=== PATIENT | female | born 1960 | race Caucasian/White ===

== ENCOUNTER 2016-10-08 13:56 | Emergency (ER) | payer OTHER, MEDICARE ==
[~2016-10-08] VITALS: Ht 160 cm; Wt 72.6 kg
[~2016-10-08 13:56] MED LIST: AMLODIPINE BESY10 M1 PO; AMLODIPINE10 MG PO; AMOXICILLIN500 MG PO; BACTRIM DS 8001 TAB PO; BENADRYL25 MG PO; CARAFATE1 GM/10 ML PO; CHANTIX1 EACH PO; CYCLOBENZAPRINE10 M1 PO; DOXYCYCLINE HY100 M2 PO; FOLIC ACID 1 MG PO; HYDROCODON-ACE1 EAC2 PO; HYDROXYZINE HCL50 M1 PO; KEPPRA 500MG T500 MG PO; LEVETIRACETAM500 M2 PO; LIDOCAINE HCL PO; LISINOPRIL10 M1 PO; LISINOPRIL10 MG PO; LORAZEPAM2 MG PO; MAGNESIUM OXID400 MG PO; MEDROL4 M2 PO; METFORMIN HCL500 M3 PO; METFORMIN HCL500 MG PO; NAPROXEN500 M2 PO; NATURE'S BLEND100 M3 PO; NEXIUM 40MG40 MG PO; OMEPRAZOLE20 M2 PO; PAROXETINE HYDR20 MG PO; PERMETHRIN60 GM TOP; PRAVASTATIN SOD10 M2 PO; PRILOSEC 20MG C20 MG PO; PRILOSEC40 MG PO; TRIAMCINOLONE A80 GM TOP; Theragran Vitamins PO; VITAMIN B-1100 MG PO; VITAMIN B-121000 MC3 PO; VITAMIN B1100 MG PO; ZOLOFT25 M1 PO
[2016-10-08] MEDS ORDERED: GOLYTELY PACKE1 EACH PO (16:03)
[2016-10-08] MEDS ORDERED: DULCOLAX10 M1 RC (16:03)
--- NOTE | 2016-10-08 16:03 | ED GI/GU/ABDOMINAL COMPLAINT ---
History of Present Illness General Chief Complaint: Abdominal Pain/Flank Pain Stated Complaint: CONSTIPATION Source: patient Exam Limitations: no limitations Vital Signs & Intake/Output Vital Signs & Intake/Output Vital Signs Date Time Temp Pulse Resp B/P Pulse O2 O2 Flow FiO2 Ox Delivery Rate 10/08 1606 98.0 72 18 161/81 98 10/08 1408 97.6 74 16 132/83 95 Room Air Allergies Coded Allergies: NO KNOWN ALLERGIES (05/27/16) Reconcile Medications Amlodipine Besylate 10 MG TABLET 1 TAB PO DAILY BP (Reported) Bisacodyl (Dulcolax) 10 MG SUPP.RECT 1 SUP RC DAILY CONSTIPATION Cyanocobalamin (Vitamin B-12) (Unknown Strength) TABLET (Unknown Dose) PO DAILY SUPPLEMENT (Reported) Cyclobenzaprine HCl 10 MG TABLET 1 TAB PO QPM PRN SPASM Diphenhydramine HCl (Benadryl) 25 MG CAPSULE 1 CAP PO BID PRN ITCHING Doxycycline Hyclate 100 MG CAPSULE 1 CAP PO BID DERMATITIS Levetiracetam 500 MG TABLET 1 TAB PO BID SEIZURES (Reported) Lisinopril 10 MG TABLET 1 TAB PO DAILY BP (Reported) Metformin HCl 500 MG TABLET 1 TAB PO BID DIABETES (Reported) Methylprednisolone. (Medrol) 4 MG TAB.DS.PK 1 DP PO AD INFLAMMATION 6 on day 1 then reduce by one tablet daily until gone Omeprazole 20 MG CAPSULE.DR 1 CAP PO BID GI (Reported) Peg 3350/Na Sulf,Bicarb,Cl/KCl (Golytely Packet) 227.1-21.5 POWD.PACK 1 PAC PO ONCE PRN CONSTIPATION Permethrin 5 % CREAM..G. 1 HAM TOP ONCE DERMATITIS massage into skin from head to soles of feet one time, leave on for 8-14 hours then remove by thorough washing Pravastatin Sodium 10 MG TABLET 1 TAB PO DAILY CHOLESTEROL (Reported) Sertraline HCl (Zoloft) 25 MG TABLET 1 TAB PO DAILY MENTAL HEALTH (Reported) Thiamine HCl (Vitamin B-1) (Unknown Strength) TABLET (Unknown Dose) PO DAILY SUPPLEMENT (Reported) Triage Note: PT STATES SHE IS CONSTIPATED TRIED ALL KINDS OF THINGS AT HOME BUT UNABLE TO MOVE HER BOWELS. PT STATES SHE CAN FEEL IT IN HER RECTUM. PT STATES SHE IS HERE FOR A RECOMENDATION TO WHAT TO TAKE TO PREVENT THIS. Triage Nurses Notes Reviewed? yes ? n Is pt currently ? No HPI: 55-year-old female here with complaints of constipation. She has been having problems with constipation for several months but is getting worse over the last few weeks. She is able to pass only small amounts of very hard stool. She has pain and pressure in her rectal area. She has frontal lower abdominal cramping pain and pressure sensation with bloating. She has a normal appetite, no vomiting. No previous abdominal surgeries. She has tried chocolate over-the- counter lactate once without relief. (LORETTA CHAUHAN) Past History Travel History Traveled to [place] past 21 day No Medical History Any Pertinent Medical History? see below for history Neurological: seizure, subdural hematoma EENT: PREVIOUS LEFT ORBITAL TRAUMA Cardiovascular: hypertension Respiratory: NONE Gastrointestinal: odynophagia/vomiting Hepatic: NONE Renal: NONE Musculoskeletal: osteoarthritis Psychiatric: alcohol dependence, depression, past hx cocaine. 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 10/22/2011: Tetanus vaccine. History of MRSA: No History of VRE: No History of CDIFF: No Tetanus Vaccine: 10/22/11 Surgical History Surgical History: R SHOULDER SURG 1994-rotator cuff (retorn) left oophrectomy 2005 "benign". Psychosocial History Who do you live with Patient/Self Services at Home None What is your primary language Guinean Tobacco Use: Current Daily Use Daily Tobacco Use Amount/Type: => 5 Cigarettes daily ETOH Use: occasional use Illicit Drug Use: denies illicit drug use Family History Family History, If Any: MOTHER, , Age 65; Cause: Throat cancer. FATHER, , Age 83; Cause: PNA (pneumonia). Hx Contributory? No (LORETTA CHAUHAN) Review of Systems Review of Systems Constitutional: Reports: see HPI. EENTM: Reports: no symptoms. Respiratory: Reports: no symptoms. Cardiovascular: Reports: no symptoms. GI: Reports: see HPI. Genitourinary: Reports: no symptoms. Musculoskeletal: Reports: no symptoms. Skin: Reports: no symptoms. Neurological/Psychological: Reports: no symptoms. Hematologic/Endocrine: Reports: no symptoms. Immunologic/Allergic: Reports: no symptoms. All Other Systems: Reviewed and Negative (LORETTA CHAUHAN) Physical Exam Physical Exam Respiratory: normal breath sounds, chest non-tender, no respiratory distress Cardiovascular: regular rate/rhythm Gastrointestinal: normal bowel sounds, soft, non-tender, mild diffuse distention , normoactive bowel sounds. Nontender. No organomegaly Core Measures ACS in differential dx? No Severe Sepsis Present: No Septic Shock Present: No (LORETTA CHAUHAN) Progress Differential Diagnosis: AAA, AMI, appendicitis, biliary colic, bowel obstruction , colon cancer, cholecystitis, diverticulitis, ectopic , endometritis, esophageal varices, gastritis, hepatitis, hernia, hemorrhoids, ischemic bowel, inflamm bowel dis, intrauterine , kidney stone, Shereen-Priscilla tear, ovarian cyst, ovarian torsion, pancreatitis, PID/cervicitis, peptic ulcer, PUD/ GERD, perforated viscous, SBO, threatened AB, UTI/pyelo Plan of Care: Recommend stool softeners, MiraLAX, suppository medication for possible rectal impaction. Patient has had colonoscopies in the past that were normal, she is taking GoLYTELY in the past with excellent results. I recommend that she takes about a third to one half of a bottle of GoLYTELY tonight to see if that helps move her bowels and we discussed being more regular and preventive measures that she can take such as increased fiber increase water increased activity Initial ED EKG: none (LORETTA CHAUHAN) Departure Departure Disposition: HOME OR SELF CARE Condition: Stable Clinical Impression Primary Impression: Constipation Qualifiers: Constipation type: unspecified constipation type Qualified Code: K59.00 - Constipation, unspecified Referrals: SANDY AGUILERA APRN (PCP/Family) Additional Instructions: Use the suppository medication for your constipation Drink one third to one half of the GoLYTELY tonight and the rest tomorrow if YOU DO not have a significant bowel movement. Start taking Metamucil or MiraLAX [id number] every day or every other day to avoid constipation Departure Forms: Customer Survey General Discharge Information Prescriptions: Current Visit Scripts Peg 3350/Na Sulf,Bicarb,Cl/KCl (Golytely Packet) 1 PAC PO ONCE PRN CONSTIPATION #1 PAC Bisacodyl (Dulcolax) 1 SUP RC DAILY #10 SUP (LORETTA CHAUHAN) PA/MIXING PICKER TENDER Co-Sign Statement Statement: ED Attending supervision documentation- [] I saw and evaluated the patient. I have also reviewed all the pertinent lab results and diagnostic results. I agree with the findings and the plan of care as documented in the PA's/MIXING PICKER TENDER's documentation. x I have reviewed the ED Record and agree with the PA's/MIXING PICKER TENDER's documentation. [] Additions or exceptions (if any) to the PAs/MIXING PICKER TENDER's note and plan are summarized below: [] (RAUL RAMOS,JAMISON)
[2016-10-08 16:06] VITALS: BP 161/81
== END 2016-10-08 16:09 ==
LOC: ERH 13:56
DX: K59.00 Constipation, unspecified (principal)

== ENCOUNTER 2016-11-17 18:08 | Emergency (ER) | payer OTHER, MEDICARE ==
[~2016-11-17] VITALS: Ht 160 cm; Wt 70.3 kg
[~2016-11-17 18:08] MED LIST changes: +DULCOLAX10 M1 RC; +GOLYTELY PACKE1 EACH PO
--- NOTE | 2016-11-17 19:12 | ED GI/GU/ABDOMINAL COMPLAINT ---
History of Present Illness General Chief Complaint: Abdominal Pain/Flank Pain Stated Complaint: DRINKING TOO MUCH, ABD PAIN, VOMITING Source: patient Exam Limitations: no limitations Vital Signs & Intake/Output Vital Signs & Intake/Output Vital Signs Date Time Temp Pulse Resp B/P Pulse O2 O2 Flow FiO2 Ox Delivery Rate 11/17 2348 98.9 89 18 139/89 96 Room Air 11/17 2209 83 16 113/68 96 Room Air 11/17 1819 97.8 118 16 123/91 98 Room Air ED Intake and Output 11/18 0000 11/17 1200 Intake Total 2000 Output Total Balance 1999 Intake, IV 2000 Patient 155 lb Weight Allergies Coded Allergies: NO KNOWN ALLERGIES (05/27/16) Reconcile Medications Amlodipine Besylate 10 MG TABLET 1 TAB PO DAILY BP (Reported) [COLON CLEANSE] 1 TBSP PO AD CONSTIPATION (Reported) Cyanocobalamin (Vitamin B-12) (Unknown Strength) TABLET (Unknown Dose) PO DAILY SUPPLEMENT (Reported) Ibuprofen 800 MG TABLET 1 TAB PO TID PAIN/INFLAMMATION (Reported) Levetiracetam 500 MG TABLET 1 TAB PO BID SEIZURES (Reported) Lisinopril 10 MG TABLET 1 TAB PO DAILY BP (Reported) Metformin HCl 500 MG TABLET 1 TAB PO BID DIABETES (Reported) Omeprazole 20 MG CAPSULE.DR 1 CAP PO BID GI (Reported) Omeprazole Magnesium (Prilosec Otc) 20 MG TABLET.DR 1 TAB PO DAILY gastritis Ondansetron (Zofran Odt) 4 MG TAB.RAPDIS 1 TAB SL TID PRN nausea Pravastatin Sodium 10 MG TABLET 1 TAB PO DAILY CHOLESTEROL (Reported) Sertraline HCl 50 MG TABLET 1 TAB PO DAILY MENTAL HEALTH (Reported) Thiamine HCl (Vitamin B-1) (Unknown Strength) TABLET (Unknown Dose) PO DAILY SUPPLEMENT (Reported) Triage Note: PT STATES SHE HAS BEEN DRINKING AND SHE IS HAVING ABD PAIN AND VOMITING. Triage Nurses Notes Reviewed? yes ? n Is pt currently ? No Onset: Gradual Duration: day(s):, waxing and waning Timing: recent history Quality/Severity: burning Location: epigastric Radiation: no radiation Activities at Onset: none Modifying Factors: Worsens With: vomiting, other (drinking etoh). Associated Symptoms: nausea/vomiting HPI: 55 yo woman h/o interittent alcohol abuse presents with mid epigastric discomfort, nausea, and vomiting for the past 1.5 days after drinking alcohol. "I bought a few pints, drank them, and then couldn 't stop vomiting." She notes that she does not chronically drink alcohol and has no tremors or withdrawal symptoms. She has no fever, chills chest pain, dysuria, dyspnea. She is otherwise well. Past History Travel History Traveled to [place] past 21 day No Medical History Any Pertinent Medical History? see below for history Neurological: seizure, subdural hematoma EENT: PREVIOUS LEFT ORBITAL TRAUMA Cardiovascular: hypertension Respiratory: NONE Gastrointestinal: odynophagia/vomiting Hepatic: NONE Renal: NONE Musculoskeletal: osteoarthritis Psychiatric: alcohol dependence, depression, past hx cocaine. 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 10/22/2011: Tetanus vaccine. History of MRSA: No History of VRE: No History of CDIFF: No Tetanus Vaccine: 10/22/11 Surgical History Surgical History: R SHOULDER SURG 1994-rotator cuff (retorn) left oophrectomy 2005 "benign". Psychosocial History Who do you live with Patient/Self Services at Home None What is your primary language Faroese Tobacco Use: Current Daily Use Daily Tobacco Use Amount/Type: => 5 Cigarettes daily ETOH Use: occasional use Illicit Drug Use: denies illicit drug use Family History Family History, If Any: MOTHER, , Age 65; Cause: Throat cancer. FATHER, , Age 83; Cause: PNA (pneumonia). Hx Contributory? No Review of Systems Review of Systems Constitutional: Reports: no symptoms. EENTM: Reports: no symptoms. Respiratory: Reports: no symptoms. Cardiovascular: Reports: no symptoms. GI: Reports: no symptoms. Genitourinary: Reports: no symptoms. Musculoskeletal: Reports: no symptoms. Skin: Reports: no symptoms. Neurological/Psychological: Reports: no symptoms. Hematologic/Endocrine: Reports: no symptoms. Immunologic/Allergic: Reports: no symptoms. All Other Systems: Reviewed and Negative Physical Exam Physical Exam General Appearance: well developed/nourished Head: atraumatic, normal appearance Eyes: Bilateral: normal appearance. Ears, Nose, Throat, Mouth: hearing grossly normal Neck: normal inspection, supple, full range of motion Respiratory: normal breath sounds, chest non-tender, no respiratory distress, quiet respiration, lungs clear Cardiovascular: regular rate/rhythm Gastrointestinal: normal bowel sounds, soft, no organomegaly, mild mid epigastric tenderness to palpation. no rebound. no guarding Back: normal inspection, normal range of motion Extremities: normal range of motion Neurologic/Psych: no motor/sensory deficits, awake, alert, oriented x 3 Skin: intact, normal color, warm/dry Core Measures ACS in differential dx? No Severe Sepsis Present: No Septic Shock Present: No Progress Differential Diagnosis: etoh gastritis, hepatitis, pancreatitis vs other. Plan of Care: Orders Procedure Date/time Status Add-on Test (ER Only) 11/18 1919 Active EKG 11/18 1919 Active TROPONIN LEVEL 11/17 1829 Complete PROTHROMBIN TIME 11/17 1829 Complete LIPASE 11/17 1829 Complete ETHANOL 11/17 1829 Complete COMPREHENSIVE METABOLIC PANEL 11/17 1829 Complete CBC WITHOUT DIFFERENTIAL 11/17 1829 Complete AMYLASE 11/17 1829 Complete Laboratory Tests 11/17/16 1900: Anion Gap 16, Estimated GFR > 60, BUN/Creatinine Ratio 20.0, Glucose 150 H, Calcium 10.3 H, Total Bilirubin 1.2, AST 70 H, ALT 84 H, Alkaline Phosphatase 83, Troponin I < 0.01, Total Protein 7.2, Albumin 4.8, Globulin 2.4, Albumin/ Globulin Ratio 2.0, Amylase 53, Lipase 90, PT 11.0, INR 1.05, CBC w Diff NO MAN DIFF REQ, RBC 4.78, MCV 91.7, MCH 30.7, RDW 15.2 H, MPV 7.5, Gran % 73.0, Lymphocytes % 14.6 L, Monocytes % 11.6 H, Eosinophils % 0.5, Basophils % 0.3, Absolute Granulocytes 4.0, Absolute Lymphocytes 0.8 L, Absolute Monocytes 0.6, Absolute Eosinophils 0, Absolute Basophils 0, PUBS MCHC 33.5, Serum Alcohol < 10.0 Initial ED EKG: normal axis, normal intervals, normal p-waves, normal QRS complex, normal sinus rhythm Departure Departure Disposition: HOME OR SELF CARE Condition: Stable Clinical Impression Primary Impression: Alcohol abuse Secondary Impressions: Gastritis, Nausea and vomiting Referrals: SANDY AGUILERA APRN (PCP/Family) Departure Forms: Customer Survey General Discharge Information Prescriptions: Current Visit Scripts Ondansetron (Zofran Odt) 1 TAB SL TID PRN nausea #10 TAB Omeprazole Magnesium (Prilosec Otc) 1 TAB PO DAILY #30 TAB Comments 11/17/16. 22:30... discussed with patient at length... pt feeling better, but still nauseous, labs benign, notable for low na/cl suggestive of hypovolemia... will give normal saline bolus 1 liter and phenergan for continued nausea. repeat abd exam is benign. 11/18/16, 0:30... pt feeling better... labs benign. no more nausea... pt safe for discharge. close follow up advised... gave rx for zofran and prilosec.
[2016-11-17] MEDS ORDERED: IBUPROFEN800 M1 PO (19:26)
[2016-11-17] MEDS ORDERED: SERTRALINE HCL50 MG PO (19:28)
[2016-11-17] MEDS ORDERED: COLON CLEANSE PO (19:30)
[2016-11-17 19:31] LABS: ABSOLUTE BASOPHIL COUNT 0 /CUMM (0.0-0.2); ABSOLUTE EOSINOPHIL COUNT 0 /CUMM (0.0-0.7); ABSOLUTE LYMPH COUNT 0.8 /CUMM (1.2-3.4); ABSOLUTE MONOCYTE COUNT 0.6 /CUMM (0.10-0.60); BASOPHIL % 0.3 % (0.0-2.0); EOSINOPHIL % 0.5 % (0-5); HEMATOCRIT 43.8 % (37-47); MEAN CORPUSCULAR HGB 30.7 PG (27.0-31.0); MEAN CORPUSCULAR HGB CONC 33.5 G/DL (33.0-37.0); MEAN CORPUSCULAR VOLUME 91.7 FL (81.0-99.0); MEAN PLATELET VOLUME 7.5 FL (7.4-10.4); PLATELET COUNT 169 /CUMM (130-400); RBC DISTRIBUTION WIDTH 15.2 % (11.5-14.5); RED BLOOD CELL CT 4.78 /CUMM (4.20-5.40); WHITE BLOOD CELL COUNT 5.4 /CUMM (4.8-10.8)
[2016-11-17] MEDS ORDERED: PRILOSEC OTC20 M1 PO (22:45)
[2016-11-17] MEDS ORDERED: ZOFRAN ODT4 M1 SL (22:45)
[2016-11-17 23:48] VITALS: BP 139/89
== END 2016-11-18 00:03 ==
LOC: ERH 18:08
PROVIDERS: Physician Assistant Medical
DX: K29.70 Gastritis, unspecified, without bleeding (principal); F10.10 Alcohol abuse, uncomplicated
CPT/HCPCS: 93005; 93010; 96374; 96375; G0480; J1885; J2405; J2550

== ENCOUNTER 2016-11-28 00:40 | Emergency (ER) | payer OTHER, MEDICARE ==
[~2016-11-28] VITALS: Ht 160 cm; Wt 70.3 kg
[~2016-11-28 00:40] MED LIST changes: +COLON CLEANSE PO; +IBUPROFEN800 M1 PO; +PRILOSEC OTC20 M1 PO; +SERTRALINE HCL50 MG PO; +ZOFRAN ODT4 M1 SL
--- NOTE | 2016-11-28 01:01 | ED PSYCHIATRIC COMPLAINT ---
History of Present Illness General Chief Complaint: ETOH/Drug Related Complaint Stated Complaint: BIBA, +ETOH Source: patient Exam Limitations: no limitations Vital Signs & Intake/Output Vital Signs & Intake/Output Vital Signs Date Time Temp Pulse Resp B/P Pulse O2 O2 Flow FiO2 Ox Delivery Rate 11/28 1125 97.6 78 18 127/60 95 Room Air 11/28 0833 98.0 74 20 108/56 96 Room Air 11/28 0633 97.0 73 18 109/53 97 Room Air 11/28 0050 95.7 63 16 93/53 94 Room Air Allergies Coded Allergies: NO KNOWN ALLERGIES (05/27/16) Reconcile Medications Amlodipine Besylate 10 MG TABLET 1 TAB PO DAILY BP (Reported) [COLON CLEANSE] 1 TBSP PO AD CONSTIPATION (Reported) Cyanocobalamin (Vitamin B-12) (Unknown Strength) TABLET (Unknown Dose) PO DAILY SUPPLEMENT (Reported) Ibuprofen 800 MG TABLET 1 TAB PO TID PAIN/INFLAMMATION (Reported) Levetiracetam 500 MG TABLET 1 TAB PO BID SEIZURES (Reported) Lisinopril 10 MG TABLET 1 TAB PO DAILY BP (Reported) Metformin HCl 500 MG TABLET 1 TAB PO BID DIABETES (Reported) Omeprazole 20 MG CAPSULE.DR 1 CAP PO BID GI (Reported) Omeprazole Magnesium (Prilosec Otc) 20 MG TABLET.DR 1 TAB PO DAILY gastritis Ondansetron (Zofran Odt) 4 MG TAB.RAPDIS 1 TAB SL TID PRN nausea Pravastatin Sodium 10 MG TABLET 1 TAB PO DAILY CHOLESTEROL (Reported) Sertraline HCl 50 MG TABLET 1 TAB PO DAILY MENTAL HEALTH (Reported) Thiamine HCl (Vitamin B-1) (Unknown Strength) TABLET (Unknown Dose) PO DAILY SUPPLEMENT (Reported) Triage Note: 56YO FEMALE TO [facility] B[facility] VIA AMB FROM HOME SP DRINKING TONITE AND FEELING DEPRESSED. ETOH SMELL ON BREATH. DENIES SI OR HI AT THIS TIME. Triage Nurses Notes Reviewed? yes Onset: Gradual Duration: hour(s): Timing: recent history Severity: moderate Associated Symptoms: anxiety HPI: 56 yo woman presents after drinking hard liquor tonight and now feels more depressed. She denies SI/HI/Hallucinations/Seizures. She notes that she is "under a lot of stress... and would like to talk to someone about it." She denies pain, injury, abuse. She is otherwise well. (LOPEZ BENITEZ MD) Past History Travel History Traveled to [place] past 21 day No Medical History Any Pertinent Medical History? see below for history Neurological: seizure, subdural hematoma EENT: PREVIOUS LEFT ORBITAL TRAUMA Cardiovascular: hypertension Respiratory: NONE Gastrointestinal: odynophagia/vomiting Hepatic: NONE Renal: NONE Musculoskeletal: osteoarthritis Psychiatric: alcohol dependence, depression, past hx cocaine. 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 10/22/2011: Tetanus vaccine. History of MRSA: No History of VRE: No History of CDIFF: No Tetanus Vaccine: 10/22/11 Surgical History Surgical History: R SHOULDER SURG 1994-rotator cuff (retorn) left oophrectomy 2005 "benign". Psychosocial History Who do you live with Patient/Self Services at Home None What is your primary language Salvadorean Tobacco Use: Cognitive Impairment Family History Family History, If Any: MOTHER, , Age 65; Cause: Throat cancer. FATHER, , Age 83; Cause: PNA (pneumonia). Hx Contributory? No (LOPEZ BENITEZ MD) Review of Systems Review of Systems Constitutional: Reports: no symptoms. EENTM: Reports: no symptoms. Respiratory: Reports: no symptoms. Cardiovascular: Reports: no symptoms. GI: Reports: no symptoms. Genitourinary: Reports: no symptoms. Musculoskeletal: Reports: no symptoms. Skin: Reports: no symptoms. Neurological/Psychological: Reports: no symptoms. Hematologic/Endocrine: Reports: no symptoms. Immunologic/Allergic: Reports: no symptoms. All Other Systems: Reviewed and Negative (LOPEZ BENITEZ MD) Physical Exam Physical Exam General Appearance: well developed/nourished, mild distress Head: atraumatic Eyes: Bilateral: PERRL, EOMI. Ears, Nose, Throat: normal pharynx, normal ENT inspection, hearing grossly normal Neck: normal inspection, supple Respiratory: normal breath sounds Cardiovascular: regular rate/rhythm Gastrointestinal: soft, non-tender Extremities: normal range of motion Neurological/Psychiatric: no motor/sensory deficits, calm, oriented x 3 Appearance/Memory/Insight: appropriate insight, disheveled Behavoir/Eye Contact/Speech: cooperative Thoughts/Hallucinations: normal thought pattern Skin: intact, normal color, warm/dry SAD PERSONS SAD PERSONS Response Value Age <19 or >45 years? yes 1 Depression/Hopelessness? yes 2 Excessive Ethanol/Drug Use? yes 1 Single//? yes 1 Social Support? has no support 1 Total 6 SAD PERSONS Done? patient not suicidal (ELI RAMOS,LOPEZ Peralta) Progress Differential Diagnosis: drug intoxication, drug withdrawal, electrolyte abnormality, depression, SI Plan of Care: Orders Procedure Date/time Status Regular Diet 11/28 B Active Continuous Observation Monitor 11/28 505 Active ED CRISIS PSYCH CONSULT 11/28 505 Active URINE DRUG SCREEN FOR ER ONLY 11/29 55 Complete URINALYSIS 11/29 55 Active HUMAN BETA HCG SCREEN 11/29 55 Complete ETHANOL 11/29 55 Complete COMPREHENSIVE METABOLIC PANEL 11/29 55 Complete CBC WITHOUT DIFFERENTIAL 11/29 55 Complete Laboratory Tests 11/28/16 1015: Urine Opiates Screen < 100.00, Methadone Screen < 40, Barbiturate Screen < 60, Ur Phencyclidine Scrn < 6.00, Amphetamines Screen < 100, U Benzodiazepines Scrn < 85, Urine Cocaine Screen < 50, Urine Cannabis Screen < 5.00 11/28/16 0110: Anion Gap 11, Estimated GFR > 60, BUN/Creatinine Ratio 18.0, Glucose 122 H, Calcium 9.1, Total Bilirubin 0.4, AST 80 H, ALT 146 H, Alkaline Phosphatase 61 , Total Protein 6.3, Albumin 4.1, Globulin 2.2, Albumin/Globulin Ratio 1.9, Total Beta HCG NEGATIVE, CBC w Diff NO MAN DIFF REQ, RBC 4.27, MCV 92.4, MCH 31.5 H, RDW 16.0 H, MPV 7.6, Gran % 50.0, Lymphocytes % 35.8, Monocytes % 10.8 H, Eosinophils % 2.7, Basophils % 0.7, Absolute Granulocytes 2.0, Absolute Lymphocytes 1.4, Absolute Monocytes 0.4, Absolute Eosinophils 0.1, Absolute Basophils 0, PUBS MCHC 34.0, Serum Alcohol 274.0 Hand-Off Endorsed To: TOÑA CHRISTIANSON DO Endorsed Time: 0700 Pending: consult, labs (ELI RAMOS,LOPEZ Peralta) Departure Departure Disposition: HOME OR SELF CARE Condition: Stable Clinical Impression Primary Impression: Depression Secondary Impressions: Alcohol intoxication Referrals: SANDY AGUILERA APRN (PCP/Family) Departure Forms: Customer Survey General Discharge Information (ELI RAMOS,LOPEZ Peralta) Departure Comments 11/28/16 12:29 pm The patient denies wanting inpatient detox at this time. She was offered evaluation for this. She was given an Ativan taper and instructed to follow-up with the outpatient detox facilities. She was told to return to the emergency department if worse. She denied suicidal or homicidal ideation (SAMMY RUST,TOÑA Burgess)
[2016-11-28 01:21] LABS: ABSOLUTE BASOPHIL COUNT 0 /CUMM (0.0-0.2); ABSOLUTE EOSINOPHIL COUNT 0.1 /CUMM (0.0-0.7); ABSOLUTE LYMPH COUNT 1.4 /CUMM (1.2-3.4); ABSOLUTE MONOCYTE COUNT 0.4 /CUMM (0.10-0.60); BASOPHIL % 0.7 % (0.0-2.0); EOSINOPHIL % 2.7 % (0-5); HEMATOCRIT 39.5 % (37-47); MEAN CORPUSCULAR HGB 31.5 PG (27.0-31.0); MEAN CORPUSCULAR VOLUME 92.4 FL (81.0-99.0); MEAN PLATELET VOLUME 7.6 FL (7.4-10.4); PLATELET COUNT 272 /CUMM (130-400); RED BLOOD CELL CT 4.27 /CUMM (4.20-5.40)
[2016-11-28] MEDS ORDERED: ATIVAN1 M1 PO (12:33)
[2016-11-28 12:42] VITALS: BP 120/60
== END 2016-11-28 12:40 ==
LOC: ERH 00:40
PROVIDERS: Pediatrics
DX: F32.9 Major depressive disorder, single episode, unspecified (principal); F10.129 Alcohol abuse with intoxication, unspecified
CPT/HCPCS: 80307; 81003; G0480

== ENCOUNTER 2016-12-04 22:54 | Emergency (ER) | payer OTHER, MEDICARE ==
[~2016-12-04] VITALS: Ht 162.6 cm; Wt 81.6 kg
[~2016-12-04 22:54] MED LIST changes: +ATIVAN1 M1 PO
--- NOTE | 2016-12-04 22:59 | ED PSYCHIATRIC COMPLAINT ---
History of Present Illness General Chief Complaint: Psychiatric Related Complaint Stated Complaint: +SI/ETOH Source: patient, old records, EMS, police Exam Limitations: no limitations Vital Signs & Intake/Output Vital Signs & Intake/Output Vital Signs Date Time Temp Pulse Resp B/P B/P Pulse O2 O2 Flow FiO2 Mean Ox Delivery Rate 12/05 1804 99.0 84 19 132/64 94 Room Air 12/05 1442 98.9 85 18 124/69 96 Room Air 12/05 1038 97.7 115 18 103/51 93 Room Air 12/05 0622 98.4 90 20 92/55 94 Room Air ED Intake and Output 12/05 0000 12/04 1200 Intake Total Output Total Balance Patient 180 lb Weight Weight Estimated Measurement Method Allergies Coded Allergies: NO KNOWN ALLERGIES (05/27/16) Reconcile Medications Amlodipine Besylate 10 MG TABLET 1 TAB PO DAILY BP (Reported) [COLON CLEANSE] 1 TBSP PO AD CONSTIPATION (Reported) Cyanocobalamin (Vitamin B-12) (Unknown Strength) TABLET (Unknown Dose) PO DAILY SUPPLEMENT (Reported) Ibuprofen 800 MG TABLET 1 TAB PO TID PAIN/INFLAMMATION (Reported) Levetiracetam 500 MG TABLET 1 TAB PO BID SEIZURES (Reported) Lisinopril 10 MG TABLET 1 TAB PO DAILY BP (Reported) Lorazepam (Ativan) 1 MG TABLET 1 TAB PO DAILY withdrawl take one tablet at lunch and dinner for 3 days then 1 tab daily for 3 days then 1/2 tab daily for 2 days Metformin HCl 500 MG TABLET 1 TAB PO BID DIABETES (Reported) Omeprazole 20 MG CAPSULE.DR 1 CAP PO BID GI (Reported) Omeprazole Magnesium (Prilosec Otc) 20 MG TABLET.DR 1 TAB PO DAILY gastritis Ondansetron (Zofran Odt) 4 MG TAB.RAPDIS 1 TAB SL TID PRN nausea Pravastatin Sodium 10 MG TABLET 1 TAB PO DAILY CHOLESTEROL (Reported) Sertraline HCl 50 MG TABLET 1 TAB PO DAILY MENTAL HEALTH (Reported) Thiamine HCl (Vitamin B-1) (Unknown Strength) TABLET (Unknown Dose) PO DAILY SUPPLEMENT (Reported) Triage Nurses Notes Reviewed? yes Onset: Abrupt Duration: hour(s):, waxing and waning Timing: recent history Severity: moderate Associated Symptoms: anxiety, suicidal ideation HPI: 56 yo woman h/o etoh use presents with agitation and suicidality. Per the police, "We were called for a domestic... She was agitated, belligerent... She wouldn't calm down... She told us that she wanted to ." Per the patient, "I've been drinking... I really pissed off." (ELI RAMOS,LOPEZ Peralta) Past History Travel History Traveled to [place] past 21 day No Medical History Any Pertinent Medical History? see below for history Neurological: seizure, subdural hematoma EENT: PREVIOUS LEFT ORBITAL TRAUMA Cardiovascular: hypertension Respiratory: NONE Gastrointestinal: odynophagia/vomiting Hepatic: NONE Renal: NONE Musculoskeletal: osteoarthritis Psychiatric: alcohol dependence, depression, past hx cocaine. 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 10/22/2011: Tetanus vaccine. History of MRSA: No History of VRE: No History of CDIFF: No Tetanus Vaccine: 10/22/11 Surgical History Surgical History: R SHOULDER SURG 1994-rotator cuff (retorn) left oophrectomy 2005 "benign". Psychosocial History Who do you live with Patient/Self Services at Home None What is your primary language Macanese Family History Family History, If Any: MOTHER, , Age 65; Cause: Throat cancer. FATHER, , Age 83; Cause: PNA (pneumonia). Hx Contributory? No (LOPEZ WEBB MD) Review of Systems Review of Systems Constitutional: Reports: no symptoms. EENTM: Reports: no symptoms. Respiratory: Reports: no symptoms. Cardiovascular: Reports: no symptoms. GI: Reports: no symptoms. Genitourinary: Reports: no symptoms. Musculoskeletal: Reports: no symptoms. Skin: Reports: no symptoms. Neurological/Psychological: Reports: no symptoms. Hematologic/Endocrine: Reports: no symptoms. Immunologic/Allergic: Reports: no symptoms. All Other Systems: Reviewed and Negative (LOPEZ WEBB MD) Physical Exam Physical Exam General Appearance: well developed/nourished, mild distress Head: atraumatic Eyes: Bilateral: normal appearance. Ears, Nose, Throat: normal pharynx, normal ENT inspection, hearing grossly normal Neck: normal inspection, supple Respiratory: normal breath sounds Cardiovascular: regular rate/rhythm Gastrointestinal: soft, non-tender Extremities: normal range of motion Neurological/Psychiatric: agitated, anxious, oriented x 3 Appearance/Memory/Insight: disheveled Behavoir/Eye Contact/Speech: belligerent, uncooperative Thoughts/Hallucinations: no apparent hallucination Skin: intact, normal color, warm/dry SAD PERSONS SAD PERSONS Response Value Age <19 or >45 years? yes 1 Depression/Hopelessness? yes 2 Excessive Ethanol/Drug Use? yes 1 Rational Thinking Loss? yes 2 Social Support? has no support 1 Total 7 SAD PERSONS Done? yes (ELI RAMOS,LOPEZ Peralta) Progress Differential Diagnosis: drug intoxication, electrolyte abnormality Plan of Care: Orders Procedure Date/time Status Regular Diet 12/05 B Active Continuous Observation Monitor 12/05 1220 Active Continuous Observation Monitor 12/05 1100 Active URINE DRUG SCREEN FOR ER ONLY 12/05 0714 Complete Continuous Observation Monitor 12/04 2314 Active ETHANOL 12/04 2314 Complete COMPREHENSIVE METABOLIC PANEL 12/04 2314 Complete CBC WITHOUT DIFFERENTIAL 12/04 2314 Complete ED CRISIS PSYCH CONSULT 12/04 2314 Active Laboratory Tests 12/05/16 0900: Urine Opiates Screen < 100.00, Methadone Screen < 40, Barbiturate Screen < 60, Ur Phencyclidine Scrn < 6.00, Amphetamines Screen < 100, U Benzodiazepines Scrn < 85, Urine Cocaine Screen < 50, Urine Cannabis Screen < 5.00 12/05/16 0156: Anion Gap 18 H, Estimated GFR > 60, BUN/Creatinine Ratio 23.3, Glucose 67, Calcium 8.7, Total Bilirubin 0.6, AST 51 H, ALT 93 H, Alkaline Phosphatase 73, Total Protein 6.5, Albumin 4.3, Globulin 2.2, Albumin/Globulin Ratio 2.0, CBC w Diff NO MAN DIFF REQ, RBC 4.89, MCV 93.2, MCH 31.1 H, RDW 16.1 H, MPV 7.9, Gran % 61.5, Lymphocytes % 28.9, Monocytes % 6.4, Eosinophils % 2.7, Basophils % 0.5, Absolute Granulocytes 3.7, Absolute Lymphocytes 1.8, Absolute Monocytes 0.4 , Absolute Eosinophils 0.2, Absolute Basophils 0, PUBS MCHC 33.4, Serum Alcohol 257.0 12/04/16 231: Methadone Screen Cancelled, Barbiturate Screen Cancelled, Ur Phencyclidine Scrn Cancelled, Amphetamines Screen Cancelled, U Benzodiazepines Scrn Cancelled, Urine Cocaine Screen Cancelled, Urine Cannabis Screen Cancelled Hand-Off Endorsed To: LIO RAMOS,TOÑA Holguin Endorsed Time: 0700 Pending: consult, labs (ELI RAMOS,LOPEZ Peralta) Comments: 12/05/2016 7:31:15 AM patient signed out to me by Dr. Webb at shift change management. 12/05/2016 6:38:12 PM patient has been evaluated by crisis and considered stable for outpatient management via IOP. (LIO RAMOS,TOÑA Holguin) Departure Departure Condition: Stable Referrals: SANDY AGUILERA APRN (PCP/Family) Departure Forms: Customer Survey General Discharge Information Comments 12/05/16, 1am... pt examined immediately upon arrival... Pt given haldol 5mg ativan 2mg im without effect... pt given zyprexa 10mg im... pt now resting comfortably. (ELI RAMOS,LOPEZ Peralta) Departure Disposition: HOME OR SELF CARE Clinical Impression Primary Impression: Agitation Secondary Impressions: Alcohol intoxication Qualifiers: Complication of substance-induced condition: with unspecified complication Qualified Code: F10.129 - Alcohol abuse with intoxication, unspecified Outbursts of anger Additional Instructions: Prior to cut down on your alcohol use. Follow-up as outlined by the leaf coverer. Follow-up with your primary care doctor for general medical evaluation as soon as possible. Return if any concerns or sudden worsening. (LIO RAMOS,TOÑA Holguin)
[2016-12-05 02:03] LABS: ABSOLUTE BASOPHIL COUNT 0 /CUMM (0.0-0.2); ABSOLUTE EOSINOPHIL COUNT 0.2 /CUMM (0.0-0.7); ABSOLUTE GRANULOCYTE CT 3.7 /CUMM (1.4-6.5); ABSOLUTE LYMPH COUNT 1.8 /CUMM (1.2-3.4); ABSOLUTE MONOCYTE COUNT 0.4 /CUMM (0.10-0.60); BASOPHIL % 0.5 % (0.0-2.0); EOSINOPHIL % 2.7 % (0-5); GRANULOCYTE % 61.5 % (42.2-75.2); HEMATOCRIT 45.5 % (37-47); MEAN CORPUSCULAR HGB 31.1 PG (27.0-31.0); MEAN CORPUSCULAR HGB CONC 33.4 G/DL (33.0-37.0); MEAN CORPUSCULAR VOLUME 93.2 FL (81.0-99.0); MEAN PLATELET VOLUME 7.9 FL (7.4-10.4); PLATELET COUNT 218 /CUMM (130-400); RBC DISTRIBUTION WIDTH 16.1 % (11.5-14.5); RED BLOOD CELL CT 4.89 /CUMM (4.20-5.40); WHITE BLOOD CELL COUNT 6.1 /CUMM (4.8-10.8)
--- NOTE | 2016-12-05 12:14 | ED PSYCH CRISIS CONSULTATION ---
Crisis Consult Basic Assessment Date of Consult: 12/05/16 Responsible Person/Accompanied By: Ginny good friend Insurance Authorization: Insurance #1: Insurance name: MEDICARE A Phone number: Policy number: [id number] Group number: Authorization number: ED Provider: Patient's ED Provider: ELI RAMOS,CHINMAY Peralta Primary Care Physician: Patient's PCP: SANDY AGUILERA APRN PCP's Current Psychiatrist: [facility] Chief Complaint: Psychiatric Related Depression Patient's Quote: "I don't remember saying anything about suicde. I never would" Present Illness: chasidy is a 56 year old female who was to [facility] for a domestic, after neighbors heard her crying and yelling. Police involved reported that patient had verbalized suicidal ideation when transported to [facility]. Patient was brought to hospital at 11 p.m. on 12-04-16, and her BAL was 257, and she was held overnight in [facility] , but required the ativan., haldol, zyprexa medications to calm her down. Patient reports that she was missing her children who are in their 20s and are not so attentive as to visit her, and she has no car, and finds that she is lonesome most of the time. Patient has few, but some close friends, including Kishore, and, primarily Ginny with whom I spoke. Apparently Ginny is a major support , and allows patient to stay with her for days at a time, and takes her places. Ginny is concerned friend who reports that patient feels lonesome, and wishes that she could be a part of her childrens lives, and is unhappy that that does not occur. When patient becomes sad she then starts drinking. She reports that she drinks (to excess) one or two days per week. She verbalized that she feels that the drinking makes the depression worse, but states that when she gets down she cant help starting to drink. She does go to [facility], but she admits to not going to appointments and not taking meds all of the time. Spoke with Fatuma from [facility], and report is that patient is near being discharged from their services, as she has not been meeting with automotive worker Astrid Lopez, and last appointment she had kept was back in October, so it is likely that she is not taking medication, although patient declares that she has been taking it, but missing a few days here and there. Patient denies that she has ever been suicidal, nor is it something she would consider. She has never been hospitalized for psych in the past. Patient is alert and oriented x 3, despite looking impaired, possilbly due to disheveled appearance. Patient admits to poor compliance with treatment in the past, and is not taking her medications reliably. Patient only briefly mentioned about husbands one year ago. Apparently the marraige had been poor for years, and patient did not mention that as a stressor as they had little communication. "We stayed together for the sake of the kids" Patient's Address: [address] [place] [address] Other Who Do You Live With? Patient/Self Family/Informants Interviewed: family all working, but close friend Ginny was very informative, and helpful Allergies - Coded Allergies: NO KNOWN ALLERGIES (05/27/16) Current Medications - Scheduled Medications Amlodipine Besylate 10 MG TABLET 1 TAB PO DAILY BP #90 (Reported) Entered as Reported by KARLOS CASEY on 12/25/15 181 [COLON CLEANSE] 1 TBSP PO AD CONSTIPATION (Reported) Entered as Reported by KARLOS CASEY on 11/17/16 1930 Cyanocobalamin (Vitamin B-12) (Unknown Strength) TABLET (Unknown Dose) PO DAILY SUPPLEMENT (Reported) Entered as Reported by KARLOS CASEY on 12/25/15 181 Ibuprofen 800 MG TABLET 1 TAB PO TID PAIN/INFLAMMATION #90 (Reported) Entered as Reported by KARLOS CASEY on 11/17/16 1926 Levetiracetam 500 MG TABLET 1 TAB PO BID SEIZURES #60 (Reported) Entered as Reported by KARLOS CASEY on 12/25/15 181 Lisinopril 10 MG TABLET 1 TAB PO DAILY BP #90 (Reported) Entered as Reported by KARLOS CASEY on 12/25/15 181 Lorazepam (Ativan) 1 MG TABLET 1 TAB PO DAILY withdrawl #10 TAB Prescribed by TOÑA CHRISTIANSON DO on 11/28/16 Metformin HCl 500 MG TABLET 1 TAB PO BID DIABETES #180 (Reported) Entered as Reported by KARLOS CASEY on 12/25/15 1812 Omeprazole 20 MG CAPSULE. 1 CAP PO BID GI #90 (Reported) Entered as Reported by KARLOS CASEY on 12/25/15 181 Omeprazole Magnesium (Prilosec Otc) 20 MG TABLET. 1 TAB PO DAILY gastritis # 30 TAB Prescribed by BASILIO BENITEZ MD on 11/17/16 Pravastatin Sodium 10 MG TABLET 1 TAB PO DAILY CHOLESTEROL #90 (Reported) Entered as Reported by KARLOS CASEY on 12/25/15 181 Sertraline HCl 50 MG TABLET 1 TAB PO DAILY MENTAL HEALTH #30 (Reported) Entered as Reported by KARLOS CASEY on 11/17/16 1928 Thiamine HCl (Vitamin B-1) (Unknown Strength) TABLET (Unknown Dose) PO DAILY SUPPLEMENT (Reported) Entered as Reported by KARLOS CASEY on 12/25/15 181 Scheduled PRN Medications Ondansetron (Zofran Odt) 4 MG TAB.RAPDIS 1 TAB SL TID PRN nausea #10 TAB Prescribed by BASILIO BENITEZ MD on 11/17/16 Laboratory Results: Laboratory Tests 12/05/16 0900: Urine Opiates Screen < 100.00, Methadone Screen < 40, Barbiturate Screen < 60, Ur Phencyclidine Scrn < 6.00, Amphetamines Screen < 100, U Benzodiazepines Scrn < 85, Urine Cocaine Screen < 50, Urine Cannabis Screen < 5.00 12/05/16 0156: Anion Gap 18 H, Estimated GFR > 60, BUN/Creatinine Ratio 23.3, Glucose 67, Calcium 8.7, Total Bilirubin 0.6, AST 51 H, ALT 93 H, Alkaline Phosphatase 73, Total Protein 6.5, Albumin 4.3, Globulin 2.2, Albumin/Globulin Ratio 2.0, CBC w Diff NO MAN DIFF REQ, RBC 4.89, MCV 93.2, MCH 31.1 H, RDW 16.1 H, MPV 7.9, Gran % 61.5, Lymphocytes % 28.9, Monocytes % 6.4, Eosinophils % 2.7, Basophils % 0.5, Absolute Granulocytes 3.7, Absolute Lymphocytes 1.8, Absolute Monocytes 0.4 , Absolute Eosinophils 0.2, Absolute Basophils 0, PUBS MCHC 33.4, Serum Alcohol 257.0 12/04/16 2315: Methadone Screen Cancelled, Barbiturate Screen Cancelled, Ur Phencyclidine Scrn Cancelled, Amphetamines Screen Cancelled, U Benzodiazepines Scrn Cancelled, Urine Cocaine Screen Cancelled, Urine Cannabis Screen Cancelled Past History Past Medical History Neurological: seizure, subdural hematoma EENT: PREVIOUS LEFT ORBITAL TRAUMA Cardiovascular: hypertension Respiratory: NONE Gastrointestinal: odynophagia/vomiting Hepatic: NONE Renal: NONE Musculoskeletal: osteoarthritis Psychiatric: alcohol dependence, depression, past hx cocaine. 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 Psychosocial History Strengths/Capabilities: Pt has had periods of sobriety and treatment. Pt has a desire to feel better. Physical Limitations (Interventions): None identified Psychiatric Treatment History Psych Treatment Psychiatric Treatment Yes Inpatient Treatment No Outpatient Treatment Yes Location of Treatment [facility] Reason for Treatment depression Dates of Treatment past 3 years Response to Treatment not been compliant with appointments Diagnosis by History: Major Depressive disorder, moderate F31.32 Substance Use/Abuse History Drug Use/Abuse Substances Used/Abused Yes Substance Used/Abused Alcohol First Use 20s Last Used yesterday How much used/taken drinks to point of drunkenness How often Pt states 2 or sometimes 3 days per week, but not all the time For how long 10+ years Route of use p.o. Substance Abuse Treatment Substance Abuse Treatment Past Substance Abuse [place] No Inpatient Treatment No Outpatient Treatment No Comments: Patient issue is transportation, and in context of lonliness Current Mental Status Mental Status Orientation: Person, Place, Situation Affect: Sad Speech: Soft Neuro-vegetative: Concentration Poor Appearance Appearance- Dress/Hygiene: disheveled ADLs could be improved Behaviors Thought Process: WNL Memory: WNL Insight: Fair SI/HI Risk Assessment Past Suicidal Ideation/Attempts No Current Suicidal Ideation/Att No (said something while drunk; de) Past Homicidal Ideation/Att: No Current Homicidal Ideation/Attempts No Degree of Intent: None, Thoughts/No Intent Risk Factors: substance abuse, lives alone, limited support Lethality Ratin (mild) PTSD Checklist PTSD Done? pt unable to participate ED Management Sitter: Yes Restraints: No DSM5/PS Stressors/Medical Prob Diagnosis' (DSM 5, Stressors, Medical): Major Depressive Disorder, moderate F 31.32 Alcohol Use Disorder, moderate F10.20 Current GAF: 43 Comments: Patient gets down when has no interaction with children. Has friends, but lives alone and gets depressed when not seeing others Has been moderately compliant with O[employer]P. 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 [employer], and they are close to closing her case, despite her being treated there for 10-15 years Departure Disposition Psych Medical Clearance Date: 12/05/16 Medically Cleared at: 1050 Time Started: 1100 Time Ended: 1150 Psychiatrist Consulted: Chinmay Bagley MD Date Disposition Established: 12/05/16 Time Disposition Established: 1330 Plan for Disposition - Modality: IOP Facility: [facility] Follow-up Appt Date: 12/06/16 Follow-Up Appt Time: 0900 Contact: Corina [facility] Rationale for Disposition: Patient denies ever thinking about hurting self. She does not remember saying anything like that, and did not mean anything by it if she did, Patient denies + S.I. Good friend Ginny states that patient gets lonesome when not seeing kids Referrals SANDY AGUILERA APRN (PCP/Family)
[2016-12-05 18:04] VITALS: BP 132/64
== END 2016-12-05 20:32 ==
LOC: ERH 22:54
PROVIDERS: Pediatrics
DX: R45.1 Restlessness and agitation (principal); F10.129 Alcohol abuse with intoxication, unspecified; R45.4 Irritability and anger
CPT/HCPCS: 80307; 96372; G0463; G0480; J1630; J3490